=== PATIENT | female | born 1950 | race Caucasian/White ===

== ENCOUNTER → 2018-05-27 11:05 | Outpatient (CLI) | payer OTHER, SELFPAY ==
[2018-05-27 12:14] LABS: Cholesterol 193 mg/dL (140-199); HDL Cholesterol 60 mg/dL (40-60); LDL Cholesterol Calculated 91 mg/dL (<100); Triglycerides 209 mg/dL (35-150)
[2018-05-27 13:08] LABS: Free T4, Direct Thyroxine 1.03 ng/dL (0.78-2.19)
[2018-05-27 13:22] LABS: Thyroid Stimulating Hormone 1.15 uIU/mL (0.47-4.68)
[2018-05-27 16:03] LABS: Creatinine Urine Random 105.5 mg/dL
[2018-05-27 16:09] LABS: Microalbumi Creatinin Ratio Ur 14.2 ug/mg CR (<30); Microalbumin Urine Random 1.5 mg/dL (0-1.6)
[2018-05-27 20:34] LABS: Hemoglobin A1C% w Est Avg Glu 5.2 % (4.0-6.0)
[2018-05-30 15:18] LABS: Alanine Aminotransferase 30 IU/L (9-52); Albumin 4.5 g/dL (3.5-5.0); Albumin Globulin Ratio 1.6 (1.0-2.8); Alkaline Phosphatase 54 U/L (38-126); Aspartate Aminotransferase 30 IU/L (14-36); BUN Creatinine Ratio 15.6 (6-22); Bilirubin Total 1.2 mg/dL (0.2-1.3); Blood Urea Nitrogen 14 mg/dL (7-17); Calcium 10.4 mg/dL (8.4-10.2); Carbon Dioxide 28 mmol/L (22-32); Chloride 103 mmol/L (98-107); Estimated Glomerular Filt Rate > 60.0 mL/min (>60); Globulin 2.9 g/dL (1.7-4.1); Glucose 98 mg/dL (80-110); HEMOLYSIS < 15 (0-50); Potassium 4.8 mmol/L (3.4-5.1); Sodium 143 mmol/L (137-145); Total Protein 7.4 g/dL (6.3-8.2)
== END ==
PROVIDERS: PCP Physician Assistant; Visit Provider Physician Assistant
DX: R03.0 Elevated blood-pressure reading, without diagnosis of hypertension (principal); R73.01 Impaired fasting glucose; E03.9 Hypothyroidism, unspecified
CPT/HCPCS: 36415; 80053; 80061; 82043; 82570; 83036; 84439; 84443

== ENCOUNTER → 2019-06-14 09:50 | Outpatient (CLI) | payer OTHER, SELFPAY | PROVIDERS: PCP Nurse Practitioner Family; Visit Provider Nurse Practitioner Family | DX: M85.852 Other specified disorders of bone density and structure, left thigh (principal); M85.851 Other specified disorders of bone density and structure, right thigh; Z78.0 Asymptomatic menopausal state | CPT/HCPCS: 77080 ==

== ENCOUNTER 2019-07-21 12:10 | Day surgery (SDC) | payer OTHER, SELFPAY ==
[2019-07-21] VITALS (7 sets, daily range): BP systolic 117–147; BP diastolic 56–70; PULSE 75–87; RESP 11–16; TEMP 36.4–36.9; O2SAT 93–99; BMI 24.3
--- NOTE | 2019-07-21 | PATH_ITS ---
[facility] Accession Number: [id number] . 01 Material submitted: . PART A: colon - ASCENDING COLON POLYP 2 CM X 1.5 CM PART B: colon - TRANSVERSE COLON POLYP 8 MM . 01 Clinical history: . ENCOUNTER FOR SCREENING FOR MALIGNANT NEOPLASM . 02 Diagnosis: A. Ascending Colon Polyp, 2 cm, Biopsy: Tubular adenoma. . B. Transverse Colon Polyp, 8 mm, Biopsy: Tubular adenoma. MRV/07/25/2019 . 02 Electronically signed: . Addison Gan MD, PhD, Pathologist NPI- [id number] . 01 Gross description: . Part A: ASCENDING COLON POLYP 2 CM X 1.5 CM: Received in formalin are 2 fragment(s) of [place], soft tissue measuring 0.5 x 0.3 x 0.2 cm to 0.4 x 0.3 x 0.2 cm submitted entirely in 1 cassette(s) Part B: TRANSVERSE COLON POLYP 8 MM: Received in formalin are multiple fragment(s) of [place], soft tissue measuring 1.0 x 0.5 x 0.2 cm in aggregate submitted entirely in 1 cassette(s) /CKI /CKI . 02 Pathologist provided ICD-10: D12.2, D12.3 . 02 CPT . 478305, 633103 Performed at: 01 [facility] [address], [place], [place] [id number] MD Jose Juan Rodrigues MD Phone: [phone] Performed at: 02 [facility] [address] [place], [place] [id number] MD Rohini Reyes MD Phone: [phone]
[2019-07-21] MEDS: SODIUM CHLORIDE 0.9% 1,000 ML 200 ML IV (12:48)
[2019-07-21] MEDS: fentaNYL 250 MCG/5 ML INJ IV (12:50)
[2019-07-21] MEDS: MIDAZOLAM 5 MG/5 ML VIAL IV (12:50)
[2019-07-21] MEDS: HYOSCYAMINE 0.125 MG TABLET PO (12:51)
--- NOTE | 2019-07-21 12:52 | PM.OP.ENDO ---
Operative Date/Time/Diagnoses Date of procedure: 07/21/19 Time of procedure: 12:58 Pre-op diagnosis: 1. Colon cancer screening 2. History of colon polyps 3. Family history of colon cancer Post-op diagnosis: other (1. Ascending polyp times 1, 2.5 x 1.5 cm, biopsy taken only; 2. Transverse polyp x1, 8 mm, removed with cold biopsy forceps; 3, diverticulosis, left-sided) Procedure & Clinicians Study performed: Colonoscopy Same procedure as scheduled: Yes Indications: 1. Colon cancer screening 2. History of colon polyps 3. Family history of colon cancer Surgeon: Cindy Rodríguez Procedure Notes SCOAP/Timeout: 12:58 Procedure in detail: ENDOSCOPIST: Cindy Rodríguez MD ANESTHESIA RN: Kateryna Jeffery RN Sedation start time: 12:58 Sedation end time: 13:25 PROCEDURE: Colonoscopy with biopsy INDICATIONS: 1. Screening for colon cancer 2. History of colon polyps 3. Family history of colon cancer MEDICATION: Levsin 0.125 mg sublingual, incremental doses of Versed and fentanyl until appropriate level sedation achieved. ASA CLASS: 3 CECAL WITHDRAWAL TIME: 27 minutes. COMPLICATIONS: None. EXTENT OF PROCEDURE: Cecum. QUALITY OF PREP: Good with portions of liquid stool. PROCEDURE: Prior to insertion of the colonoscope, a digital rectal examination was accomplished with circumferential palpation of the distal rectal mucosa without significant findings being noted. The high-definition colonoscope was passed into the rectum in the usual fashion and advanced over to the cecum without difficulty. The ileocecal valve, appendiceal stoma, and medial wall all could be inspected and no abnormalities were seen. ASCENDING COLON: As the colonoscope was withdrawn, care was taken to expose and inspect the haustral folds, a 2.5 x 1.5 cm sessile polyp was noted just proximal to the ileocecal valve. Polyp was lifted with methylene blue and targeted biopsy taken x2. Lesion was friable and care was taken to ensure excellent hemostasis before withdrawal. HEPATIC FLEXURE: Normal no polyps, diverticula or other abnormalities. TRANSVERSE COLON: An 8 mm polyp was lifted with methylene blue and removed with 11 mm cold snare, excellent hemostasis., otherwise no diverticula or other abnormalities. DESCENDING COLON: Moderate diverticulosis, otherwise, normal, no polyps or other abnormalities. SIGMOID COLON: Moderate diverticulosis, otherwise normal, no polyps or other abnormalities. RECTUM: Normal. J maneuver was produced. There was no significant perianal disease. The J maneuver was broken. The remainder of the rectum was inspected and there was no external hemorrhoid disease. The scope was withdrawn. IMPRESSION: 1. Ascending polyp x1, 2.5 x 1.5 cm, lifted with methylene blue and targeted biopsy taken x2 2. Transverse polyp x1, 8 mm, lifted with methylene blue and removed with cold snare 3. Moderate diverticulosis, left-sided PLAN: 1. Referral to GI for removal of large, unresected right-sided polyp The possibility of a missed lesion including a malignancy has been discussed with the patient previously. Potential alarm symptoms have been discussed and should be reported immediately. Scope withdrawal time: 27 minutes Findings: diverticulosis and polyp Specimen(s): other Complications: none Impression: As above. Post-procedure Recommendations: Will call with biopsy results and Other recommendation (GI referral) Plan for aftercare: Routine postoperative instructions provided to patient. Follow up: weeks (2) Disposition: PACU
--- NOTE | 2019-07-21 13:00 | SUR.OPER ---
GLASSES IN LABELED BAG TO PACU WITH PATIENT.
[2019-07-21] MEDS: METHYLENE BLUE 50 MG/10 ML VIAL IV (13:30)
--- NOTE | 2019-07-21 14:04 | SUR.PHASEI ---
Normal PACU stay, Dr. Rodríguez spoke with pt at bedside.
== END 2019-07-21 15:30 | disposition home or self-care (01) ==
LOC: ENDO 12:13
PROVIDERS: PCP Nurse Practitioner Family; Visit Provider Student in an Organized Health Care Education/Training Program
PROC: 0DJD8ZZ Inspection of Lower Intestinal Tract, Via Natural or Artificial Opening Endoscopic (ICD-10-PCS; CPT 45378; principal; 2019-07-21 13:00)
DX: Z86.010 Personal history of colon polyps (principal); Z80.0 Family history of malignant neoplasm of digestive organs; D12.2 Benign neoplasm of ascending colon; D12.3 Benign neoplasm of transverse colon
CPT/HCPCS: 45380; J2250; J3010; Q9968